=== PATIENT | male | born 1965 | race Caucasian/White ===

== ENCOUNTER 2017-03-07 15:57 | Inpatient (IN) | payer OTHER ==
[~2017-03-07] VITALS: Ht 170.2 cm; Wt 90.8 kg
[2017-03-07] MEDS ORDERED: predniSONE 20 MG TAB PO STA (16:11)
[2017-03-07] MEDS ORDERED: IPRATROPIUM (NEB) 0.5 MG/2.5 ML AMP NEB STA (16:11)
[2017-03-07] MEDS ORDERED: ALBUTEROL 0.083% (NEB) 2.5 MG/3 ML AMP NEB STA (16:11)
[2017-03-07] MEDS ORDERED: AZITHROMYCIN 250 MG TAB PO ONE (16:30)
--- NOTE | 2017-03-07 17:40 | RADRPT ---
PROCEDURE: XR Chest. CLINICAL INDICATION: Cough. Asthma exacerbation. TECHNIQUE: Single frontal chest x-ray. COMPARISON: None available. FINDINGS: The cardiomediastinal silhouette is unremarkable. Mild bibasilar atelectasis is noted. No pneumothorax, pleural effusion or consolidation is seen. No acute osseous abnormality is noted. IMPRESSION: 1. Mild bibasilar atelectasis. 2. Otherwise no acute cardiopulmonary abnormality. RPTAT: HFN .Fiorella Gilliland MD, Date Time Electronically viewed and signed by .Fiorella Gilliland MD, on 03/07/2017 17:40 .N/
[2017-03-07] MEDS ORDERED: ALBUTEROL 0.083% (NEB) 2.5 MG/3 ML AMP HHN STA (18:21)
[2017-03-07] MEDS ORDERED: ALBU18HF INHALATION (18:21)
[2017-03-07] MEDS ORDERED: PRED20TA PO (18:21)
[2017-03-07] MEDS ORDERED: AZIT250T94 PO (18:21)
[2017-03-07 18:51] LABS: ADD SCAN DIFF NO
[2017-03-07 18:54] LABS: BASOPHIL # 0.1 10^3/ul (0.0-0.1); BASOPHILS % 0.5 % (0.0-2.0); EOSINOPHILS # 0.8 10^3/ul (0.0-0.5); EOSINOPHILS % 6.8 % (0.0-7.0); HEMATOCRIT 59.4 % (42.0-52.0); HEMOGLOBIN 19.4 g/dl (14.0-18.0); LYMPHOCYTES # 1.6 10^3/ul (0.8-2.9); LYMPHOCYTES % 13.2 % (15.0-51.0); MEAN CORPUSCULAR HEMOGLOBIN 30.4 pg (29.0-33.0); MEAN CORPUSCULAR HGB CONC 32.7 g/dl (32.0-37.0); MEAN CORPUSCULAR VOLUME 93.1 fl (82.0-101.0); MEAN PLATELET VOLUME 8.8 fl (7.4-10.4); MONOCYTE # 0.4 10^3/ul (0.3-0.9); MONOCYTES % 3.7 % (0.0-11.0); NEUTROPHIL # 9.1 10^3/ul (1.6-7.5); NEUTROPHILS % 75.4 % (39.0-77.0); PLATELET COUNT 254 10^3/UL (140-415); RED BLOOD COUNT 6.38 10^6/ul (4.70-6.10)
[2017-03-07 19:06] LABS: CREATININE 0.95 mg/dl (0.61-1.24)
[2017-03-07 19:07] LABS: CALCIUM 9.2 mg/dl (8.4-10.2)
[2017-03-07] MEDS ORDERED: HTN PO (19:10)
[2017-03-07] MEDS ORDERED: DIABETES PO (19:12)
[2017-03-07] MEDS ORDERED: ONDANSETRON 4 MG INJ IV PRN (19:30)
[2017-03-07] MEDS ORDERED: ACETAMINOPHEN 325 MG TAB PO PRN (19:30)
--- NOTE | 2017-03-07 19:31 | ERA ---
ER Documentation Chief Complaint Date/Time DATE: 03/07/17 TIME: 19:27 Chief Complaint COUGH,SOB,WHEEZING X 2 DAYS HPI Patient is a 52-year-old male with bronchitis, diabetes, and hypertension he says "I cannot breathe". He said this started 2 days ago but has gotten worse. He has a cough but no fever. He has had no treatment as of yet. Upon review of old medical records this the patient's first visit to the emerge department. He says that he has a primary doctor but does not know the doctor's name. ROS All systems reviewed and are negative except as per history of present illness. Medications Home Meds Active Scripts Azithromycin* (Zithromax*) 250 Mg Tablet, 250 MG PO DAILY for 4 Days, TAB Prov:JOSE SANCHEZ MD 03/07/17 Prednisone* (Prednisone*) 20 Mg Tab, 60 MG PO DAILY for 4 Days, TAB Prov:JOSE SANCHEZ MD 03/07/17 Albuterol Sulfate* (Ventolin HFA*) 18 Gm Hfa.aer.ad, 2 PUFF INHALATION Q4H, #1 INHALER Prov:JOSE SANCHEZ MD 03/07/17 Reported Medications [Diabetes] No Conflict Check, PO DAILY 03/07/17 [Htn] No Conflict Check, PO DAILY 03/07/17 Allergies Allergies: Coded Allergies: No Known Drug Allergy (Verified Allergy, Unknown, 03/07/17) PMhx/Soc Hx Respiratory Disorders: Yes (asthma) Hx Miscellaneous Medical Probl: Yes (HTN, DM) Hx Alcohol Use: Yes Hx Substance Use: No Hx Tobacco Use: Yes (1 ppd) Smoking Status: Current every day smoker FmHx Family History: diabetes Physical Exam Vitals Vital Signs Date Time Temp Pulse Resp B/P Pulse Ox O2 Delivery O2 Flow Rate FiO2 03/07/17 19:24 77 89 03/07/17 19:23 Nasal Cannula 2 03/07/17 19:20 97.7 95 20 142/98 98 Nasal Cannula 2.0 03/07/17 19:20 Nasal Cannula 2.0 03/07/17 19:20 Nasal Cannula 2 03/07/17 19:10 2.0 03/07/17 19:09 88 22 98 Nasal Cannula 2.0 03/07/17 16:36 83 20 96 21 03/07/17 15:59 97.5 91 22 162/97 95 Physical Exam Const: Moderate distress secondary to shortness of breath Head: Atraumatic Eyes: Normal Conjunctiva ENT: Normal External Ears, Nose and Mouth. Neck: Full range of motion..~ No meningismus. Resp: Rhonchorous breath sounds bilaterally Cardio: Regular rate and rhythm, no murmurs Abd: Soft, non tender, non distended. Normal bowel sounds Skin: No petechiae or rashes Back: No midline or flank tenderness Ext: No cyanosis, or edema Neur: Awake and alert Psych: Normal Mood and Affect Result Diagram: 03/07/170 03/07/171839 Results 24 hrs Laboratory Tests Test 03/07/17 18:40 White Blood Count 12.010^3/ul Red Blood Count 6.3810^6/ul Hemoglobin 19.4g/dl Hematocrit 59.4% Mean Corpuscular Volume 93.1fl Mean Corpuscular Hemoglobin 30.4pg Mean Corpuscular Hemoglobin Concent 32.7g/dl Red Cell Distribution Width 14.0% Platelet Count 13249^3/UL Mean Platelet Volume 8.8fl Neutrophils % 75.4% Lymphocytes % 13.2% Monocytes % 3.7% Eosinophils % 6.8% Basophils % 0.5% Nucleated Red Blood Cells % 0.0/100WBC Neutrophils # 9.110^3/ul Lymphocytes # 1.610^3/ul Monocytes # 0.410^3/ul Eosinophils # 0.810^3/ul Basophils # 0.110^3/ul Nucleated Red Blood Cells # 0.010^3/ul Sodium Level 137mmol/L Potassium Level 4.0mmol/L Chloride Level 101mmol/L Carbon Dioxide Level 24mmol/L Anion Gap 16 Blood Urea Nitrogen 11mg/dl Creatinine 0.95mg/dl Glucose Level 141mg/dl Calcium Level 9.2mg/dl Current Medications Medications (Trade) Dose Ordered Sig/Hector Route PRN Reason Start Time Stop Time Status Last Admin Dose Admin Albuterol (Proventil 0.083% (Neb)) 5 mg ONCE STAT NEB 03/07/17 16:11 03/07/17 16:13 DC 03/07/17 16:35 Ipratropium Trent (Atrovent 0.02% (Neb)) 0.5 mg ONCE STAT NEB 03/07/17 16:11 03/07/17 16:13 DC 03/07/17 16:34 Prednisone (Prednisone) 60 mg ONCE STAT PO 03/07/17 16:11 03/07/17 16:13 DC 03/07/17 16:17 Azithromycin (Zithromax) 500 mg ONCE ONCE PO 03/07/17 16:30 03/07/17 16:31 DC 03/07/17 16:17 Albuterol (Proventil 0.083% (Neb)) 5 mg ONCE STAT HHN 03/07/17 18:21 03/07/17 18:23 DC 03/07/17 19:09 Ondansetron HCl (Zofran Inj) 4 mg BRIDGE ORDER PRN IV NAUSEA AND/OR VOMITING 03/07/17 19:30 03/08/17 19:29 Acetaminophen (Tylenol Tab) 650 mg ER BRIDGE PRN PO MILD PAIN/FEVER 03/07/17 19:30 03/08/17 19:29 Procedures/MDM Chest x-ray shows no pneumonia per radiology. Flu swab is negative. Patient is a 52-year-old male who presents with what appears to be acute COPD exacerbation. The patient was given albuterol, Atrovent, prednisone, and Zithromax but after breathing treatment was still hypoxic in the 80s. Therefore I felt that admission was appropriate. He does feel better from a respiratory standpoint. I spoke with Dr. Jiang for the palate team for admission. The patient will be admitted to a medical surgical bed. The patient will likely continue breathing treatments and steroids. I doubt pneumonia, pneumothorax, or pulmonary embolism. Departure Diagnosis: Primary Impression: Bronchitis Additional Impression: Shortness of breath Condition: Fair Patient Instructions: Bronchitis, Antiobiotic Treatment (Adult) Referrals: Your doctor Additional Instructions: Call your primary care doctor TOMORROW for an appointment during the next 1-2 days.See the doctor sooner or return here if your condition worsens before your appointment time. JOSE SANCHEZ MD Mar 07, 2017 19:31
[2017-03-08] VITALS (8 sets, daily range): BP systolic 132–142; BP diastolic 80–89; PULSE 98–109; RESP 18–19; TEMP 98.1; Ht 170.2 cm; Wt 90.8 kg
[2017-03-08] MEDS ORDERED: IPRATROPIUM (NEB) 0.5 MG/2.5 ML AMP NEB STA (01:53)
[2017-03-08] MEDS ORDERED: ALBUTEROL 0.083% (NEB) 2.5 MG/3 ML AMP NEB STA (01:53)
[2017-03-08] MEDS ORDERED: IPRATROPIUM (NEB) 0.5 MG/2.5 ML AMP INH STA (03:29)
[2017-03-08] MEDS ORDERED: ALBUTEROL 0.5% (NEB) 2.5 MG/0.5 ML AMP INH STA (03:29)
[2017-03-08] MEDS ORDERED: ONDANSETRON 4 MG INJ IV PRN (05:30)
[2017-03-08] MEDS ORDERED: LORAZEPAM 2 MG INJ IV PRN (05:30)
[2017-03-08] MEDS ORDERED: ACETAMINOPHEN 325 MG TAB PO PRN (05:30)
[2017-03-08] MEDS: LEVOFLOXACIN 500MG/D5W (PMX) 100 ML IVPB SCH (06:59)
--- NOTE | 2017-03-08 07:18 | HP ---
DATE OF ADMISSION: 03/07/2017 TIME SEEN: 2300. CHIEF COMPLAINT: Shortness of breath and cough. HISTORY OF PRESENT ILLNESS: The patient is a 52-year-old male with a history of diabetes, hypertens ion, COPD, depression, alcohol abuse, marijuana and crystal meth use, who presented to the emergency department complaining of shortness of breath and cough. The symptoms have been going on for about 3 days. His cough is productive of brownish sputum. He denied any fever, chills, nausea or vomi ting, chest pain, abdominal pain or urinary symptoms. He did admit to drinking alcohol on a daily b asis and his last drink was yesterday, about 5 beers. He also smokes marijuana and crystal meth, an d I believe he last used crystal meth yesterday as well. When he presented to the ER his blood pressure was 167/97, heart rate 91, respiratory rate 20, tempe rature 97.5, oxygen saturation 95% on room air. Laboratory values show a WBC of 12, with a hemoglob in of 19 and a hematocrit of 59. Otherwise, the rest of CBC and BMP are within normal limits. Ches t x-ray shows mild bibasilar atelectasis, otherwise no acute cardiopulmonary abnormality. He receiv ed breathing treatments with albuterol and Atrovent and was given 60 mg of prednisone. REVIEW OF SYSTEMS: A 12-point review was performed and negative except as mentioned in the HPI. PAST MEDICAL HISTORY: As per HPI. PAST SURGICAL HISTORY: Denies. SOCIAL HISTORY: He smokes a pack a day. He drinks alcohol daily, choice of drink being beer. Also a history of marijuana and crystal meth. PHYSICAL EXAMINATION: VITAL SIGNS: Blood pressure 148/88, heart rate 92, respiratory rate 18, temperature 98, oxygen satu ration 98% on 2 liters. GENERAL: In no acute distress, answering questions appropriately. He is alert and oriented. HEENT: No obvious head deformity. Pupils react to light. Extraocular muscles are intact. CARDIOVASCULAR: Regular rate and rhythm. No extra sounds. LUNGS: He has minimal scattered wheezing. ABDOMEN: Soft, nontender, nondistended. Positive bowel sounds. EXTREMITIES: No edema. NEUROLOGIC: No focal deficits. LABORATORY: WBC 12, hemoglobin 19, hematocrit 59. Otherwise CBC and BMP are within normal limits. IMAGING: Chest x-ray shows mild right basilar atelectasis, otherwise no active cardiopulmonary abno rmality. IMPRESSION: 1. Chronic obstructive pulmonary disease exacerbation. 2. Acute bronchitis. 3. SIRS, as evidenced by leukocytosis and tachycardia, likely secondary to #2. 4. Polysubstance abuse, including alcohol, marijuana and crystal meth. 5. Erythrocytosis, most likely hemoconcentration secondary to dehydration. PLAN: He will receive breathing treatments, as well as Solu-Medrol. He will be placed on oxygen. He will also be placed on antibiotics. Will attempt to send his sputum for Gram stain and culture. The patient's last drink was yesterday and he has been drinking on a daily basis, and as such, he w ill be placed on a banana bag and Librium, with as-needed Ativan for prevention of withdrawal. I wi ll place him on IV fluid to help with his erythrocytosis, which I think is secondary to hemoconcentr ation. If no improvement, then a hematology consult will be placed. Given the risk of thrombosis, he will be placed on a small dose of aspirin for now. Further workup and management per clinical course. Dictated By: AYDE MEADE/JASPREET Conf#: [id number] DID#: [id number]
[2017-03-08] MEDS ORDERED: METHYLPREDNISOLONE 125 MG INJ IV SCH (09:00)
[2017-03-08] MEDS: LEVALBUTEROL (NEB) 0.31 MG/3 ML AMP HHN SCH ×3 (09:00→16:11)
[2017-03-08] MEDS: IPRATROPIUM (NEB) 0.5 MG/2.5 ML AMP HHN SCH ×3 (09:00→16:11)
[2017-03-08] MEDS: CHLORDIAZEPOXIDE 25 MG CAP PO SCH ×3 (09:54→21:27)
[2017-03-08] MEDS: NICOTINE (21 MG/24 HR) PATCH TRANSDERM SCH (09:54)
[2017-03-08] MEDS: MULTIVITAMINS 10 ML, THIAMINE 100 MG, FOLIC ACID 1 MG in SOD CHLORIDE 0.9% 1,000 ML IVPB SCH (09:54)
[2017-03-08] MEDS: ASPIRIN (EC) 81 MG TAB PO SCH (09:54)
[2017-03-08 12:23] LABS: ADD SCAN DIFF NO
[2017-03-08 12:28] LABS: BASOPHILS % 0.3 % (0.0-2.0); EOSINOPHILS # 0.2 10^3/ul (0.0-0.5); EOSINOPHILS % 1.5 % (0.0-7.0); HEMATOCRIT 56.3 % (42.0-52.0); HEMOGLOBIN 18.7 g/dl (14.0-18.0); LYMPHOCYTES # 1.5 10^3/ul (0.8-2.9); LYMPHOCYTES % 11.3 % (15.0-51.0); MEAN CORPUSCULAR HEMOGLOBIN 31.3 pg (29.0-33.0); MEAN CORPUSCULAR HGB CONC 33.2 g/dl (32.0-37.0); MEAN CORPUSCULAR VOLUME 94.3 fl (82.0-101.0); MEAN PLATELET VOLUME 8.9 fl (7.4-10.4); MONOCYTE # 0.7 10^3/ul (0.3-0.9); MONOCYTES % 5.5 % (0.0-11.0); NEUTROPHIL # 10.7 10^3/ul (1.6-7.5); NEUTROPHILS % 80.7 % (39.0-77.0); PLATELET COUNT 270 10^3/UL (140-415); RED BLOOD COUNT 5.97 10^6/ul (4.70-6.10); RED CELL DISTRIBUTION WIDTH 13.6 % (11.5-14.5); WHITE BLOOD COUNT 13.3 10^3/ul (4.8-10.8)
[2017-03-08 12:39] LABS: ALBUMIN 4.2 g/dl (3.3-4.9)
[2017-03-08 12:40] LABS: POTASSIUM 3.5 mmol/L (3.5-5.1)
[2017-03-08 12:42] LABS: ALBUMIN/GLOBULIN RATIO 1.31; BILIRUBIN,INDIRECT 0.4 mg/dl (0-1.1); BILIRUBIN,TOTAL 0.4 mg/dl (0.2-1.3); CREATININE 1.11 mg/dl (0.61-1.24); TOTAL PROTEIN 7.4 g/dl (6.1-8.1)
[2017-03-08 12:43] LABS: CALCIUM 9.2 mg/dl (8.4-10.2); MAGNESIUM 2.3 mg/dl (1.7-2.5); PHOSPHORUS 2.6 mg/dl (2.5-4.9)
[2017-03-08] MEDS: LEVALBUTEROL (NEB) 0.31 MG/3 ML AMP HHN PRN ×2 (13:27→20:49)
[2017-03-08] MEDS: IPRATROPIUM (NEB) 0.5 MG/2.5 ML AMP HHN PRN ×2 (13:27→20:49)
--- NOTE | 2017-03-08 14:02 | PN ---
Date/Time of Note Date/Time of Note DATE: 03/08/17 TIME: 13:56 Assessment/Plan VTE Prophylaxis VTE Prophylaxis Intervention: SCD's Lines/Catheters IV Catheter Type (from Rust): Saline Lock Assessment/Plan Chief Complaint/Hosp Course 1. Chronic obstructive pulmonary disease exacerbation -Pulm consult -cont Steroids and Abx 2. Sepsis as evidenced by leukocytosis and tachycardia 2/2 Bronchitis -cont Abx 3. Polysubstance abuse, including alcohol, marijuana and crystal meth. 4. Tobacco abuse -advised to stop using 5. Erythrocytosis, most likely hemoconcentration secondary to dehydration PPx- SCD's Problems: Subjective 24 Hr Interval Summary Respiratory: shortness of breath Exam/Review of Systems Vital Signs Vitals Vital Signs Date Time Temp Pulse Resp B/P Pulse Ox O2 Delivery O2 Flow Rate FiO2 03/08/17 13:28 96 26 95 Nasal Cannula 2.0 03/08/17 11:21 97.1 140/86 03/08/17 03:31 28 Exam Constitutional: alert, oriented Respiratory: clear to auscultation Cardiovascular: regular rate and rhythm Gastrointestinal: soft, No distended Musculoskeletal: nl extremities to inspection Results Result Diagram: 03/08/17 1210 03/08/17 1210 Results 24 hrs Laboratory Tests Test 03/07/17 18:40 03/08/17 11:17 03/08/17 12:10 White Blood Count 12.0 H 13.3 H Red Blood Count 6.38 H 5.97 Hemoglobin 19.4 H 18.7 H Hematocrit 59.4 H 56.3 H Mean Corpuscular Volume 93.1 94.3 Mean Corpuscular Hemoglobin 30.4 31.3 Mean Corpuscular Hemoglobin Concent 32.7 33.2 Red Cell Distribution Width 14.0 13.6 Platelet Count 254 270 Mean Platelet Volume 8.8 8.9 Neutrophils % 75.4 80.7 H Lymphocytes % 13.2 L 11.3 L Monocytes % 3.7 5.5 Eosinophils % 6.8 1.5 Basophils % 0.5 0.3 Nucleated Red Blood Cells % 0.0 0.0 Neutrophils # 9.1 H 10.7 H Lymphocytes # 1.6 1.5 Monocytes # 0.4 0.7 Eosinophils # 0.8 H 0.2 Basophils # 0.1 0.0 Nucleated Red Blood Cells # 0.0 0.0 Sodium Level 137 137 Potassium Level 4.0 3.5 Chloride Level 101 99 Carbon Dioxide Level 24 26 Anion Gap 16 16 Blood Urea Nitrogen 11 16 Creatinine 0.95 1.11 Glucose Level 141 164 Calcium Level 9.2 9.2 Bedside Glucose 184 Phosphorus Level 2.6 Magnesium Level 2.3 Total Bilirubin 0.4 Direct Bilirubin 0.00 Indirect Bilirubin 0.4 Aspartate Amino Transf (AST/SGOT) 23 Alanine Aminotransferase (ALT/SGPT) 34 Alkaline Phosphatase 80 Total Protein 7.4 Albumin 4.2 Globulin 3.20 Albumin/Globulin Ratio 1.31 Medications Medications Current Medications Lorazepam (Ativan) 2 mg Q1H PRN IV Withdrawal; Start 03/08/17 at 05:30 Chlordiazepoxide (Librium) 50 mg TID PO Last administered on 03/08/17 12:30; Admin Dose 50 MG; Start 03/08/17 at 09:00; Stop 03/11/17 at 00:00 Methylprednisolone Sodium Succinate (Solu-Medrol) 80 mg DAILY IV Last administered on 03/08/17 09:53; Admin Dose 80 MG; Start 03/08/17 at 09:00 Acetaminophen (Tylenol Tab) 650 mg Q6H PRN PO PAIN AND OR ELEVATED TEMP; Start 03/08/17 at 05:30 Ondansetron HCl (Zofran Inj) 4 mg Q6H PRN IV NAUSEA AND/OR VOMITING; Start at 05:30 Nicotine 1 patch 1 patch DAILY TRANSDERM Last administered on 03/08/17 09:54; Admin Dose 1 PATCH; Start 03/08/17 at 09:00 Multivitamins/ Thiamine HCl/ Folic Acid/Sodium Chloride (Mvi Adult/ Vitamin B1/ Folic Acid/NS) 1,011.2 ml @ 125 mls/ hr DAILY@09 IVPB Last administered on 09:54; Admin Dose 125 MLS/HR; Start 03/08/17 at 09:00; Stop 03/11/17 at 08:00 Aspirin 81 mg 81 mg DAILY PO Last administered on 03/08/17 09:54; Admin Dose 81 MG; Start 03/08/17 at 09:00 Levofloxacin/ Dextrose (Levaquin 500mg/ D5W 100 ml (Pmx)) 100 ml @ 100 mls/hr Q24H IVPB Last administered on 03/08/17t 06:59; Admin Dose 100 MLS/HR; Start at 06:30 JOHN SANCHEZ Mar 08, 2017 14:02
--- NOTE | 2017-03-08 14:53 | CONS ---
Date/Time of Note Date/Time of Note DATE: 03/08/17 TIME: 14:49 Assessment/Plan Assessment/Plan Additional Assessment/Plan HEENT examination; supple neck, no JVD. No lymphadenopathy. Midline trachea. No thyromegaly. Pharynx is clear. Patient is edentulous. Pupils are midsize and reactive to light. Chest examination; diminished air entry bilaterally with bilateral expiratory wheezing. S1-S2 audible, no murmurs. Regular rhythm. Abdomen examination; soft, protuberant. No organomegaly. Bowel sounds audible. Extremity exam; no peripheral edema. No clubbing. Pulses 2+. 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 Assessment and recommendations; 1. Patient admitted for COPD exacerbation and acute bronchitis. 2. History of hypertension or diabetes. 3. History of drug use. Continue current treatment. Increase Solu-Medrol 80 mg every 6 hours. ABG has been done once the results are obtained I will review it and make further recommendations. The patient may benefit from BiPAP. Consultation Date/Type/Reason Admit Date/Time Mar 07, 2017 at 19:10 Date of Consultation: Mar 08, 2017 Type of Consultation: Pulmonary Reason for Consultation Pulmonary consultations obtained for evaluation of COPD exacerbation. History presenting any; patient is a 52-year-old F [place] male who came into the emergency room yesterday with a few days history of increasing shortness of breath cough and wheezing. According to him he was doing fine until the symptoms started. Patient denies any fever or chest pain any body aches, myalgias or arthralgia. Denies any sore throat. According to him he is just fatigued and tired. Past medical history; 1. History of COPD. 2. History of drug abuse. 3. Hypertension. 4. Diabetes. Allergies; are none. Social history; patient smokes about pack and a half a day and also uses crystal meth and drinks alcohol, patient's last drink was several days ago. Family history; patient is single he does not have any children. Occupational history; patient is on disability. Review of systems; denies any headache, seizures, visual changes. Any sinus symptoms. Any chest pain or angina. Complains of scant cough without any sputum production. Denies any hemoptysis. Complains of wheezing and shortness of breath. Complains of dyspnea on exertion. Denies abdominal pain, nausea vomiting. Any melena, hematochezia. Denies any edema. Complains of mild orthopnea. Denies any weight change. General exam; middle-aged male, appears overweight currently in no distress awake. Respiratory: shortness of breath Social History Smoking Status: Current every day smoker Exam/Review of Systems Vital Signs Vitals Vital Signs Date Time Temp Pulse Resp B/P Pulse Ox O2 Delivery O2 Flow Rate FiO2 03/08/17 13:28 96 26 95 Nasal Cannula 2.0 03/08/17 11:21 97.1 140/86 03/08/17 03:31 28 Results Result Diagram: 03/08/17 1210 03/08/17 1210 Results 24 hrs Laboratory Tests Test 03/07/17 18:40 03/08/17 11:17 03/08/17 12:10 White Blood Count 12.0 H 13.3 H Red Blood Count 6.38 H 5.97 Hemoglobin 19.4 H 18.7 H Hematocrit 59.4 H 56.3 H Mean Corpuscular Volume 93.1 94.3 Mean Corpuscular Hemoglobin 30.4 31.3 Mean Corpuscular Hemoglobin Concent 32.7 33.2 Red Cell Distribution Width 14.0 13.6 Platelet Count 254 270 Mean Platelet Volume 8.8 8.9 Neutrophils % 75.4 80.7 H Lymphocytes % 13.2 L 11.3 L Monocytes % 3.7 5.5 Eosinophils % 6.8 1.5 Basophils % 0.5 0.3 Nucleated Red Blood Cells % 0.0 0.0 Neutrophils # 9.1 H 10.7 H Lymphocytes # 1.6 1.5 Monocytes # 0.4 0.7 Eosinophils # 0.8 H 0.2 Basophils # 0.1 0.0 Nucleated Red Blood Cells # 0.0 0.0 Sodium Level 137 137 Potassium Level 4.0 3.5 Chloride Level 101 99 Carbon Dioxide Level 24 26 Anion Gap 16 16 Blood Urea Nitrogen 11 16 Creatinine 0.95 1.11 Glucose Level 141 164 Calcium Level 9.2 9.2 Bedside Glucose 184 Phosphorus Level 2.6 Magnesium Level 2.3 Total Bilirubin 0.4 Direct Bilirubin 0.00 Indirect Bilirubin 0.4 Aspartate Amino Transf (AST/SGOT) 23 Alanine Aminotransferase (ALT/SGPT) 34 Alkaline Phosphatase 80 Total Protein 7.4 Albumin 4.2 Globulin 3.20 Albumin/Globulin Ratio 1.31 Medications Medications Current Medications Lorazepam (Ativan) 2 mg Q1H PRN IV Withdrawal; Start 03/08/17 at 05:30 Chlordiazepoxide (Librium) 50 mg TID PO Last administered on 03/08/17 12:30; Admin Dose 50 MG; Start 03/08/17 at 09:00; Stop 03/11/17 at 00:00 Methylprednisolone Sodium Succinate (Solu-Medrol) 80 mg DAILY IV Last administered on 03/08/17 09:53; Admin Dose 80 MG; Start 03/08/17 at 09:00 Acetaminophen (Tylenol Tab) 650 mg Q6H PRN PO PAIN AND OR ELEVATED TEMP; Start 03/08/17 at 05:30 Ondansetron HCl (Zofran Inj) 4 mg Q6H PRN IV NAUSEA AND/OR VOMITING; Start at 05:30 Nicotine 1 patch 1 patch DAILY TRANSDERM Last administered on 03/08/17 09:54; Admin Dose 1 PATCH; Start 03/08/17 at 09:00 Multivitamins/ Thiamine HCl/ Folic Acid/Sodium Chloride (Mvi Adult/ Vitamin B1/ Folic Acid/NS) 1,011.2 ml @ 125 mls/ hr DAILY@09 IVPB Last administered on 09:54; Admin Dose 125 MLS/HR; Start 03/08/17 at 09:00; Stop 03/11/17 at 08:00 Aspirin 81 mg 81 mg DAILY PO Last administered on 03/08/17 09:54; Admin Dose 81 MG; Start 03/08/17 at 09:00 Levofloxacin/ Dextrose (Levaquin 500mg/ D5W 100 ml (Pmx)) 100 ml @ 100 mls/hr Q24H IVPB Last administered on 03/08/17 06:59; Admin Dose 100 MLS/HR; Start at 06:30 LINDA VIZCARRA Mar 08, 2017 14:53
[2017-03-08 15:13] LABS: AADO2 Arterial 80.2 mmHg (7.0-24.0); Allen Test ACCEPTAB; Arterial Base Excess -3.5 mmol/L (-3.0-3); Arterial COHb 0.3 % (0.0-3.0); Arterial Fraction of Oxyhgb 94.8 % (93.0-99.0); Arterial HCO3 19.8 mmol/L (22.0-26.0); Arterial MetHb 0.4 % (0.0-1.5); MODE NASAL CANNULA
[2017-03-08] MEDS: METHYLPREDNISOLONE 125 MG INJ IV SCH (17:25)
[2017-03-09] VITALS (12 sets, daily range): BP systolic 125–137; BP diastolic 75–94; PULSE 40–110; RESP 19–22
[2017-03-09] MEDS: METHYLPREDNISOLONE 125 MG INJ IV SCH ×3 (00:08→12:02)
[2017-03-09] MEDS: IPRATROPIUM (NEB) 0.5 MG/2.5 ML AMP HHN PRN ×3 (01:28→14:35)
[2017-03-09] MEDS ORDERED: LORAZEPAM 2 MG INJ IV ONE (01:30)
[2017-03-09] MEDS ORDERED: LEVALBUTEROL (NEB) 0.31 MG/3 ML AMP HHN ONE (02:03)
[2017-03-09] MEDS ORDERED: METHYLPREDNISOLONE 125 MG INJ IV ONE (02:03)
[2017-03-09] MEDS ORDERED: IPRATROPIUM (NEB) 0.5 MG/2.5 ML AMP HHN ONE (02:03)
[2017-03-09] MEDS: LEVALBUTEROL (NEB) 0.31 MG/3 ML AMP HHN PRN ×2 (05:23→14:45)
[2017-03-09] MEDS: LEVOFLOXACIN 500MG/D5W (PMX) 100 ML IVPB SCH (06:27)
[2017-03-09 08:30] LABS: ADD SCAN DIFF NO
[2017-03-09 08:42] LABS: BASOPHILS % 0.1 % (0.0-2.0); EOSINOPHILS % 0.1 % (0.0-7.0); HEMOGLOBIN 18.2 g/dl (14.0-18.0); LYMPHOCYTES # 1.4 10^3/ul (0.8-2.9); MEAN CORPUSCULAR HEMOGLOBIN 31.4 pg (29.0-33.0); MEAN CORPUSCULAR HGB CONC 33.1 g/dl (32.0-37.0); MEAN CORPUSCULAR VOLUME 94.8 fl (82.0-101.0); MONOCYTE # 0.4 10^3/ul (0.3-0.9); MONOCYTES % 2.5 % (0.0-11.0); NEUTROPHIL # 13.2 10^3/ul (1.6-7.5); NEUTROPHILS % 87.4 % (39.0-77.0); PLATELET COUNT 287 10^3/UL (140-415); RED CELL DISTRIBUTION WIDTH 14.1 % (11.5-14.5); WHITE BLOOD COUNT 15.2 10^3/ul (4.8-10.8)
[2017-03-09 09:01] LABS: POTASSIUM 4.4 mmol/L (3.5-5.1)
[2017-03-09 09:03] LABS: CREATININE 1.24 mg/dl (0.61-1.24)
[2017-03-09 09:04] LABS: CALCIUM 9.5 mg/dl (8.4-10.2)
[2017-03-09] MEDS: CHLORDIAZEPOXIDE 25 MG CAP PO SCH ×2 (09:09→12:44)
[2017-03-09] MEDS: ASPIRIN (EC) 81 MG TAB PO SCH (09:09)
[2017-03-09] MEDS: MULTIVITAMINS 10 ML, THIAMINE 100 MG, FOLIC ACID 1 MG in SOD CHLORIDE 0.9% 1,000 ML IVPB SCH (10:13)
[2017-03-09] MEDS: NICOTINE (21 MG/24 HR) PATCH TRANSDERM SCH (12:02)
--- NOTE | 2017-03-09 14:54 | CONS ---
Date/Time of Note Date/Time of Note DATE: 03/09/17 TIME: 14:53 Consult Date/Type/Reason Admit Date/Time Mar 07, 2017 at 19:10 Initial Consult Date 03/08/17 Type of Consultation: Pulmonary Subjective Breathing a little better today less shortness of breath Objective Vital Signs Date Time Temp Pulse Resp B/P Pulse Ox O2 Delivery O2 Flow Rate FiO2 03/09/17 14:36 102 22 93 Nasal Cannula 2.0 03/09/17 12:06 98.0 125/75 03/09/17 09:50 30 Intake and Output 03/08/17 03/08/17 03/09/17 15:00 23:00 07:00 Intake Total 100 ml 2191 ml Output Total 1250 ml Balance 100 ml 941 ml Exam GENERAL: Well-nourished well-developed gentleman comfortable at rest VITAL SIGNS: per chart NECK: Supple. No JVD or lymphadenopathy. CARDIAC EXAM: S1, S2. No added sounds or murmurs. CHEST: Diminished air entry bilaterally with mild expiratory wheezing ABDOMEN: Soft, nontender. No guarding or rebound. EXTREMITIES: No cyanosis, clubbing or edema. NEUROLOGIC: Generalized weakness. No focal deficits. Results/Medications Result Diagram: 03/09/17 0746 03/09/17 0746 Results 24 hrs Laboratory Tests Test 03/09/17 07:46 White Blood Count 15.2 H Red Blood Count 5.80 Hemoglobin 18.2 H Hematocrit 55.0 H Mean Corpuscular Volume 94.8 Mean Corpuscular Hemoglobin 31.4 Mean Corpuscular Hemoglobin Concent 33.1 Red Cell Distribution Width 14.1 Platelet Count 287 Mean Platelet Volume 9.0 Neutrophils % 87.4 H Lymphocytes % 9.0 L Monocytes % 2.5 Eosinophils % 0.1 Basophils % 0.1 Nucleated Red Blood Cells % 0.0 Neutrophils # 13.2 H Lymphocytes # 1.4 Monocytes # 0.4 Eosinophils # 0.0 Basophils # 0.0 Nucleated Red Blood Cells # 0.0 Sodium Level 139 Potassium Level 4.4 Chloride Level 100 Carbon Dioxide Level 25 Anion Gap 18 H Blood Urea Nitrogen 19 Creatinine 1.24 Glucose Level 212 Hemoglobin A1c 6.4 H Calcium Level 9.5 Medications Current Medications Lorazepam (Ativan) 2 mg Q1H PRN IV Withdrawal; Start 03/08/17 at 05:30 Chlordiazepoxide (Librium) 50 mg TID PO Last administered on 03/09/17 12:44; Admin Dose 50 MG; Start 03/08/17 at 09:00; Stop 03/11/17 at 00:00 Acetaminophen (Tylenol Tab) 650 mg Q6H PRN PO PAIN AND OR ELEVATED TEMP; Start 03/08/17 at 05:30 Ondansetron HCl (Zofran Inj) 4 mg Q6H PRN IV NAUSEA AND/OR VOMITING; Start at 05:30 Nicotine 1 patch 1 patch DAILY TRANSDERM Last administered on 03/09/17 12:02; Admin Dose 1 PATCH; Start 03/08/17 at 09:00 Multivitamins/ Thiamine HCl/ Folic Acid/Sodium Chloride (Mvi Adult/ Vitamin B1/ Folic Acid/NS) 1,011.2 ml @ 125 mls/ hr DAILY@09 IVPB Last administered on 10:13; Admin Dose 125 MLS/HR; Start 03/08/17 at 09:00; Stop 03/11/17 at 08:00 Aspirin 81 mg 81 mg DAILY PO Last administered on 03/09/17 09:09; Admin Dose 81 MG; Start 03/08/17 at 09:00 Levofloxacin/ Dextrose (Levaquin 500mg/ D5W 100 ml (Pmx)) 100 ml @ 100 mls/hr Q24H IVPB Last administered on 03/09/17 06:27; Admin Dose 100 MLS/HR; Start at 06:30 Methylprednisolone Sodium Succinate (Solu-Medrol) 80 mg Q6 IV Last administered on 03/09/17 12:02; Admin Dose 80 MG; Start 03/08/17 at 18:00 Assessment/Plan Chief Complaint/Hosp Course Assessment 1. COPD exacerbation with possible component of community-acquired pneumonia 2. History of polysubstance abuse 3. Polycythemia Plan 1. Continue antibiotics 2. Continue steroids 3. Continue bronchodilators 4. Social work evaluation regarding substance abuse Anticipate discharge soon. Problems: DAVE CYR MD, [facility] Mar 09, 2017 14:54
--- NOTE | 2017-03-09 14:58 | PDOCDIS ---
Discharge Instructions CONDITION Patient Condition: Stable HOME CARE INSTRUCTIONS: Diet Instructions: Low Fat /Cholesterol ACTIVITY: Activity Restrictions: Slowly Increase Activity Rest between Activity Avoid heavy lifting FOLLOW UP/APPOINTMENTS Appointments Follow-up with primary care physician as outpatient Follow up with pumper gauger as outpatient OTHER ORDERS: Other Orders: Smoking cessation CARLITOS GALVIN MD Mar 09, 2017 14:58
[2017-03-09] MEDS ORDERED: LEVO500T72 PO (15:04)
[2017-03-09] MEDS ORDERED: IPRA4AER INHALATION (15:04)
[2017-03-09] MEDS ORDERED: CHLO25CA9 PO (15:04)
[2017-03-09] MEDS ORDERED: NICO1PAT6 TRANSDERM (15:04)
[2017-03-09] MEDS ORDERED: PRED20TA PO (15:04)
[2017-03-09] MEDS ORDERED: MULTI PO (15:04)
[2017-03-09] MEDS ORDERED: THIA100T10 PO (15:04)
[2017-03-09] MEDS ORDERED: FOLI-49 PO (15:04)
[2017-03-09] MEDS ORDERED: ASPI-664 PO (15:04)
[2017-03-09] MEDS ORDERED: METF500T4 PO (15:06)
--- NOTE | 2017-03-09 16:30 | DS ---
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 Keaton Steen. DIAGNOSES 1. Chronic obstructive pulmonary disease exacerbation. 2. Sepsis secondary bronchitis. 3. Poly substance abuse. 4. History of alcohol abuse. 5. History of crystal meth abuse. 6. History of marijuana use. 7. ____ secondary to dehydration. 8. Noncompliant with medical management. 9. Noncompliant with BiPAP during the course of hospitalization. 10. Leukocytosis, steroid induced. 11. Diabetes mellitus with hemoglobin 6.4. 12. Nicotine dependency. MEDICATIONS: 1. Albuterol sulfate. 2. Combivent. 3. Aspirin. 4. Librium. 5. Folic acid. 6. Levaquin. 7. Metformin. 8. Multivitamin. 9. Nicotine patch. 10. Prednisone. 11. Thiamine. ALLERGIES: NO KNOWN DRUG ALLERGIES. HOSPITAL COURSE: This is a 52-year-old gentleman with past medical history of diabetes mellitus, hy pertension, COPD, nicotine dependency, alcohol abuse, marijuana and crystal meth use, who presented to [facility] Emergency Room having shortness of breath, cough and fever. The shortness of breath has been going on for 3 days prior to admission, his cough was productive, brownish sputum. Denies any fever, chills, abdominal pain and has been drinking alcohol daily and his last drink was the day before 03/06/2017, marijuana and crystal meth. In the emergency room, his WBC was 12, hemo globin 6.4, hematocrit 59.4. He was started on banana bag, Librium, IV Levaquin and IV fluid. Pul saddle stitching machine operator was consulted, Librium, IV fluids and Solu-Medrol. He was seen and evaluated by the pulm onologist. His WBC started to improve, although today he had a bump in his WBC, although he has bee n found to be afebrile. This is likely secondary to Steroid-induced leukocytosis. His breathing st atus has been improving significantly. There was no wheezing. He denies having any chest pain, cadence rtness of breath. He has been noncompliant with oxygen, BiPAP during this course of hospitalization . Today, he had his oxygen off and upon evaluation by the nurse saturation was 91% to 93% assessed during ambulation and at rest. Upon discharge and when prescribing his prescription and providing p rescription, it was found the patient had eloped from his room and has left without obtaining any of his medications. The discharge was explained to him by me and the nurse and without notifying any of the medical personnel, he has left the hospital. This will put him at risk of worsening of his m edical status secondary to not being able to obtain his medication. His breathing status may worsen without the medication which was provided. Notation, the patient eloped prior to obtaining his prescription and has been taken the risk of leav ing without medical advice. This means that he has put himself in the danger of worsening his cond ition especially with his drug habits and smoking habits, which may lead to worsening of shortness o f breath, worsening of his bronchitis and possibly . Dictated By: CARLITOS SHANNON/JASPREET Conf#: [id number] DID#: [id number]
== END 2017-03-09 16:52 | disposition left against medical advice (07) | DRG 872 ==
LOC: FTE 15:57 → PP2 19:10 → MS4 03-09 03:00
PROVIDERS: ADMIT Internal Medicine; ATTEND Internal Medicine
PROC: 4A033R1 Measurement of Arterial Saturation, Peripheral, Percutaneous Approach (ICD-10-PCS; principal; 2017-03-08)
DX: A41.9 Sepsis, unspecified organism (principal); J44.0 Chronic obstructive pulmonary disease with (acute) lower respiratory infection; D75.1 Secondary polycythemia; E11.9 Type 2 diabetes mellitus without complications; D72.829 Elevated white blood cell count, unspecified; I10 Essential (primary) hypertension; J98.11 Atelectasis; J44.1 Chronic obstructive pulmonary disease with (acute) exacerbation; J20.9 Acute bronchitis, unspecified; F19.10 Other psychoactive substance abuse, uncomplicated; F10.10 Alcohol abuse, uncomplicated; T38.0X5A Adverse effect of glucocorticoids and synthetic analogues, initial encounter; E86.0 Dehydration; F17.210 Nicotine dependence, cigarettes, uncomplicated; Z91.19 Patient's noncompliance with other medical treatment and regimen; Z91.14 Patient's other noncompliance with medication regimen
CPT/HCPCS: 36600; 71010; 80048; 80053; 82803; 82962; 83036; 83735; 84100; 85025; 87400; 94640; 94644; 94660; 94664; J1956; J2060; J2930; J3411; J7030; J7512

== ENCOUNTER 2017-07-22 20:45 | Emergency (ER) | payer OTHER ==
[~2017-07-22] VITALS: Ht 170.2 cm; Wt 95.0 kg
[~2017-07-22 20:45] MED LIST: ALBU18HF INHALATION; ASPI-664 PO; CHLO25CA9 PO; FOLI-49 PO; IPRA4AER INHALATION; LEVO500T72 PO; METF500T4 PO; MULTI PO; NICO1PAT6 TRANSDERM; PRED20TA PO; THIA100T10 PO
[2017-07-22 20:54] VITALS: Ht 170.2 cm; Wt 95.0 kg
[2017-07-22] MEDS ORDERED: ONDANSETRON 4 MG INJ IV STA (21:27)
[2017-07-22] MEDS ORDERED: morphine 4 MG/ML VIAL IV STA (21:27)
[2017-07-22] MEDS ORDERED: SOD CHLORIDE 0.9% 500 ML IV STA (21:27)
[2017-07-22 21:49] VITALS: BP 121/78; PULSE 78; RESP 18; TEMP 98.1
[2017-07-22 21:49] LABS: BASOPHIL # 0.1 10^3/ul (0.0-0.1); EOSINOPHILS # 1.2 10^3/ul (0.0-0.5); EOSINOPHILS % 12.8 % (0.0-7.0); HEMATOCRIT 54.2 % (42.0-52.0); HEMOGLOBIN 18.5 g/dl (14.0-18.0); LYMPHOCYTES # 2.3 10^3/ul (0.8-2.9); LYMPHOCYTES % 25.3 % (15.0-51.0); MEAN CORPUSCULAR HEMOGLOBIN 31.1 pg (29.0-33.0); MEAN CORPUSCULAR HGB CONC 34.1 g/dl (32.0-37.0); MEAN CORPUSCULAR VOLUME 91.1 fl (82.0-101.0); MEAN PLATELET VOLUME 8.8 fl (7.4-10.4); MONOCYTE # 0.6 10^3/ul (0.3-0.9); MONOCYTES % 6.2 % (0.0-11.0); PLATELET COUNT 221 10^3/UL (140-415); RED BLOOD COUNT 5.95 10^6/ul (4.70-6.10); RED CELL DISTRIBUTION WIDTH 12.3 % (11.5-14.5); WHITE BLOOD COUNT 9.1 10^3/ul (4.8-10.8)
[2017-07-22 21:54] LABS: ADD UMIC YES; UR ASCORBIC ACID NEGATIVE (NEGATIVE); UR BILIRUBIN (Dip) NEGATIVE (NEGATIVE); UR BLOOD (Dip) NEGATIVE (NEGATIVE); UR CLARITY CLEAR (CLEAR); UR COLOR YELLOW (YELLOW); UR GLUCOSE (Dip) 3+ mg/dL (NEGATIVE); UR KETONES (Dip) NEGATIVE (NEGATIVE); UR LEUKOCYTE ESTERASE (Dip) TRACE Leu/ul (NEGATIVE); UR MUCUS FEW /HPF (NONE SEEN); UR NITRITE (Dip) NEGATIVE (NEGATIVE); UR RBC 1 /HPF (0-5); UR TOTAL PROTEIN (Dip) NEGATIVE (NEGATIVE); UR UROBILINOGEN (Dip) 1+ mg/dL (NEGATIVE)
[2017-07-22 22:11] LABS: ALBUMIN/GLOBULIN RATIO 1.37; BILIRUBIN,INDIRECT 0.1 mg/dl (0-1.1); BILIRUBIN,TOTAL 0.1 mg/dl (0.2-1.3); CALCIUM 8.6 mg/dl (8.4-10.2); CREATININE 1.18 mg/dl (0.61-1.24); POTASSIUM 3.5 mmol/L (3.5-5.1); TOTAL PROTEIN 6.9 g/dl (6.1-8.1)
[2017-07-22] MEDS ORDERED: HYDROmorphONE 1 MG/ML SYG IV STA (22:38)
--- NOTE | 2017-07-23 00:07 | RADRPT ---
PROCEDURE: CT ABDOMEN AND PELVIS WITHOUT CONTRAST: CLINICAL INDICATION: 54 years of age, male, abdominal pain. COMPARISON: None available. TECHNIQUE: CT of the abdomen and pelvis was performed without intravenous contrast. Oral contrast wa s not administered prior to the examination. Coronal and sagittal reformatted images were obtained from the axial source images. Images were revi ewed on a high-resolution PACS workstation. Dose information: Based on a 32 cm phantom, the estimated radiation dose (CTDIvol mGy) for each seri es in this exam is 19.3. The estimated cumulative dose (DLP mGy-cm) is 1114. One or more of the following dose reduction techniques were used: - Automated exposure control. - Adjustment of the mA and/or kV according to patient size. - Use of iterative reconstruction technique. FINDINGS: In the absence of intravenous contrast, the study constitutes a limited assessment of the solid orga ns, bowel and vessels. LUNG BASES: 0.7 cm subpleural nodule right middle lobe (3/2). 0.6 cm right lower lobe pulmonary nodu le (3/13). 0.7 cm left lower lobe pulmonary nodule (3/6). ABDOMEN/PELVIS: Liver: Normal noncontrast appearance. Gallbladder: Normal noncontrast appearance. Bile ducts: No intrahepatic or extrahepatic biliary duct dilatation. Spleen: Normal noncontrast appearance. Pancreas: There are coarse calcifications in the head of the pancreas in keeping with chronic pancre atitis. There are large calcifications in the tail of the pancreas that may be situated in the duct. There is likely upstream dilatation of the main pancreatic duct in the tail of the pancreas althoug h a cystic pancreatic tail mass cannot be excluded. Adrenal glands: Normal noncontrast appearance. Kidneys and ureters: Normal noncontrast appearance. Aorta and IVC: Mild atherosclerosis aorta. No aneurysm. Lymph nodes: Mildly enlarged celiac axis lymph node measuring 1.3 cm (3/49). Gastrointestinal tract: Normal noncontrast appearance. Appendix: Normal Bladder: Normal noncontrast appearance. Pelvic Organs: Normal noncontrast appearance. Peritoneal cavity: No free fluid or free intraperitoneal air. Abdominal wall: There is a 3.2 x 7.7 x 7.2 cm ill-defined heterogeneous mass enlarging the left rect us abdominus muscle with edema in the overlying subcutaneous fat. Mass contains hyperdense areas. There is a abdominal wall hernia in the supraumbilical midline that contains a knuckle of small princess l and fat without evidence of obstruction or strangulation. Hernia sac measures 7 cm and defect in t he fascia measures 2.7 cm. Small bilateral fat containing indirect inguinal hernias. Small fat containing right lumbar hernia i nferior to the right 12th rib. BONES: Musculoskeletal: Multilevel degenerative changes in spine. No suspicious bone lesions. IMPRESSION: 7.7 cm ill-defined mass enlarging the left rectus abdominus muscle with edema in the overlying subcu taneous fat. In a patient who is anticoagulated, the appearance could be consistent with an intram uscular hematoma. In the absence of anticoagulation, the appearance is concerning for a soft tissue neoplasm. Recommend further evaluation with contrast enhanced CT or MRI. Coarse calcifications in the head of the pancreas are likely due to chronic pancreatitis. There are coarse calcifications in the tail of the pancreas that may be situated in the duct with obstruction of the main pancreatic duct and upstream dilatation. However a pancreatic tail mass with coarse calc ifications cannot be excluded. Recommend further evaluation with dedicated enhanced pancreas CT. Bilateral pulmonary nodules measuring up to 0.7 cm. Recommend further evaluation with dedicated ches t CT. Fat and bowel containing abdominal wall hernia in the supraumbilical midline without obstruction or strangulation. In addition there are bilateral fat containing inguinal hernias and a fat-containing right lumbar hernia. RPTAT: HCTS Physician Anup Date Time Electronically viewed and signed by Physician Anup on 07/23/2017 00:06 /
--- NOTE | 2017-07-23 00:57 | ERD ---
ER Documentation Chief Complaint Date/Time DATE: 07/23/17 TIME: 00:55 Chief Complaint abd pain 4 days. -n/v/d. HPI This is a 52-year-old male comes with abdomen left upper quadrant for the past 4 days on and off. He says it feels very distended. No nausea no vomiting no chills. Pain is mild to moderate intensity. No other current complaints. ROS All systems reviewed and are negative except as per history of present illness. Medications Home Meds Active Scripts Metformin* (Glucophage*) 500 Mg Tab, 500 MG PO BID, #60 TAB Prov:CARLITOS GALVIN MD 03/09/17 Levofloxacin* (Levaquin*) 500 Mg Tablet, 500 MG PO DAILY, #7 TAB Prov:CARLITOS GALVIN MD 03/09/17 Albuterol/Ipratropium* (Combivent Respimat*) 20-100 Mcg/Inh - 4 Gm Aer.w.adap, 1 PUFF INHALATION QID, #1 INHALER Prov:CARLITOS GALVIN MD 03/09/17 Multivitamins* (Theragran*) 1 Tab Tab, 1 TAB PO DAILY, #30 TAB Prov:CARLITOS GALVIN MD 03/09/17 Thiamine* (Thiamine*) 100 Mg Tablet, 100 MG PO DAILY, #30 TAB Prov:CARLITOS GALVIN MD 03/09/17 Folic Acid* (Folic Acid*) 1 Mg Tablet, 1 MG PO DAILY, #30 TAB Prov:CARLITOS GALVIN MD 03/09/17 Chlordiazepoxide* (Chlordiazepoxide*) 25 Mg Capsule, 50 MG PO TID, #15 CAP Prov:CARLITOS GALVIN MD 03/09/17 Aspirin* (Aspirin* EC) 81 Mg Tablet.dr, 81 MG PO DAILY, #30 Prov:CARLITOS GALVIN MD 03/09/17 Nicotine* (Nicotine* Patch) 21 mg/day Patch, 1 PATCH TRANSDERM DAILY, #30 Prov:CARLITOS GALVIN MD 03/09/17 Prednisone* (Prednisone*) 20 Mg Tab, 20 MG PO BID for 7 Days, #14 TAB Prov:CARLITOS GALVIN MD 03/09/17 Albuterol Sulfate* (Ventolin HFA*) 18 Gm Hfa.aer.ad, 2 PUFF INHALATION Q4H, #1 INHALER Prov:JOSE SANCHEZ MD 03/07/17 Allergies Allergies: Coded Allergies: No Known Drug Allergy (Verified Allergy, Unknown, 07/22/17) PMhx/Soc History of Surgery: No Anesthesia Reaction: No Hx Neurological Disorder: No Hx Respiratory Disorders: Yes (COPD) Hx Cardiac Disorders: No Hx Psychiatric Problems: Yes (Depression) Hx Miscellaneous Medical Probl: Yes (abdominal hernia) Hx Alcohol Use: Yes (Every day, 5 beers a day) Hx Substance Use: Yes (+ meth, cocaine "a few days ago".) Hx Tobacco Use: Yes (1 pack/day x 40 years ) Smoking Status: Current every day smoker Physical Exam Vitals Vital Signs Date Time Temp Pulse Resp B/P Pulse Ox O2 Delivery O2 Flow Rate FiO2 07/22/17 21:49 98.1 78 18 121/78 99 Room Air 07/22/17 20:54 98.1 97 18 129/87 99 Physical Exam Const: [] Head: Atraumatic Eyes: Normal Conjunctiva ENT: Normal External Ears, Nose and Mouth. Neck: Full range of motion..~ No meningismus. Resp: Clear to auscultation bilaterally Cardio: Regular rate and rhythm, no murmurs Abd: Soft, non tender, non distended. Normal bowel sounds Skin: No petechiae or rashes Back: No midline or flank tenderness Ext: No cyanosis, or edema Neur: Awake and alert Psych: Normal Mood and Affect Result Diagram: 07/22/17213407/22/172134 Results 24 hrs Laboratory Tests Test 07/22/17 21:35 White Blood Count 9.110^3/ul Red Blood Count 5.9510^6/ul Hemoglobin 18.5g/dl Hematocrit 54.2% Mean Corpuscular Volume 91.1fl Mean Corpuscular Hemoglobin 31.1pg Mean Corpuscular Hemoglobin Concent 34.1g/dl Red Cell Distribution Width 12.3% Platelet Count 38649^3/UL Mean Platelet Volume 8.8fl Neutrophils % 54.0% Lymphocytes % 25.3% Monocytes % 6.2% Eosinophils % 12.8% Basophils % 1.0% Nucleated Red Blood Cells % 0.0/100WBC Neutrophils # (Manual) 4.910^3/ul Lymphocytes # 2.310^3/ul Monocytes # 0.610^3/ul Eosinophils # 1.210^3/ul Basophils # 0.110^3/ul Nucleated Red Blood Cells # 0.010^3/ul Urine Color YELLOW Urine Clarity CLEAR Urine pH 5.0 Urine Specific [place] 1.030 Urine Ketones NEGATIVEmg/dL Urine Nitrite NEGATIVEmg/dL Urine Bilirubin NEGATIVEmg/dL Urine Urobilinogen 1+mg/dL Urine Leukocyte Esterase TRACELeu/ul Urine Microscopic RBC 1/HPF Urine Microscopic WBC 14/HPF Urine Mucus FEW/HPF Urine Hemoglobin NEGATIVEmg/dL Urine Glucose 3+mg/dL Urine Total Protein NEGATIVEmg/dl Sodium Level 136mmol/L Potassium Level 3.5mmol/L Chloride Level 102mmol/L Carbon Dioxide Level 28mmol/L Anion Gap 10 Blood Urea Nitrogen 9mg/dl Creatinine 1.18mg/dl Glucose Level 230mg/dl Calcium Level 8.6mg/dl Total Bilirubin 0.1mg/dl Direct Bilirubin 0.00mg/dl Indirect Bilirubin 0.1mg/dl Aspartate Amino Transf (AST/SGOT) 25IU/L Alanine Aminotransferase (ALT/SGPT) 40IU/L Alkaline Phosphatase 91IU/L Total Protein 6.9g/dl Albumin 4.0g/dl Globulin 2.90g/dl Albumin/Globulin Ratio 1.37 Lipase 66U/L Current Medications Medications (Trade) Dose Ordered Sig/Hector Route PRN Reason Start Time Stop Time Status Last Admin Dose Admin Sodium Chloride (NS) 500 ml @ 500 mls/hr Q1H STAT IV 07/22/17 21:27 07/22/17 22:26 DC 07/22/17 21:42 Morphine Sulfate (morphine) 4 mg ONCE STAT IV 07/22/17 21:27 07/22/17 21:28 DC 07/22/17 21:42 Ondansetron HCl (Zofran Inj) 4 mg ONCE STAT IV 07/22/17 21:27 07/22/17 21:28 DC 07/22/17 21:42 Hydromorphone HCl (Dilaudid) 1 mg ONCE STAT IV 07/22/17 22:38 07/22/17 22:39 DC 07/22/17 23:34 Procedures/MDM CT scan of abdomen and pelvis shows a possible neoplasm versus expanding hematoma. Please see radiologist dictation for report. Medical decision-m[age]-year-old male who has what looks to be soft tissue mass versus hematoma in the left upper quadrant and the rectus sheath muscle. I have advised for admission, however the patient is decided to sign out AGAINST MEDICAL ADVICE. Patient understands the risks secondary to leaving AGAINST MEDICAL ADVICE currently including possible due to current condition. He verbalizes these risks and repeat some back in his own words. Patient will follow up with primary care physician Departure Diagnosis: Primary Impression: Abdominal pain Abdominal location: unspecified location Qualified Code: R10.9 - Abdominal pain, unspecified abdominal location Condition: Stable AYDE ARECHIGA Jul 23, 2017 00:57
[2017-07-23] MEDS ORDERED: HYDR-902 PO (00:58)
== END 2017-07-23 01:30 | disposition home or self-care (01) ==
LOC: E/R 20:45
DX: R10.12 Left upper quadrant pain (principal); J44.9 Chronic obstructive pulmonary disease, unspecified; F17.210 Nicotine dependence, cigarettes, uncomplicated; Z79.82 Long term (current) use of aspirin; Z79.84 Long term (current) use of oral hypoglycemic drugs
CPT/HCPCS: 36415; 74176; 80053; 81001; 83690; 85025; 96374; 96375; J1170; J2270; J2405; J7040; Z7502

== ENCOUNTER 2017-08-31 02:22 | Inpatient (IN) | payer OTHER ==
[~2017-08-31] VITALS: Ht 170.2 cm; Wt 113.0 kg
[~2017-08-31 02:22] MED LIST changes: +HYDR-902 PO
[2017-08-31] MEDS ORDERED: IPRATROPIUM (NEB) 0.5 MG/2.5 ML AMP INH STA (02:36)
[2017-08-31] MEDS ORDERED: LEVALBUTEROL (NEB) 1.25 MG/0.5 ML AMP INH STA (02:36)
[2017-08-31 03:03] LABS: BASOPHIL # 0.1 10^3/ul (0.0-0.1); EOSINOPHILS # 1.5 10^3/ul (0.0-0.5); EOSINOPHILS % 13.7 % (0.0-7.0); HEMATOCRIT 55.6 % (42.0-52.0); HEMOGLOBIN 18.4 g/dl (14.0-18.0); LYMPHOCYTES # 2.5 10^3/ul (0.8-2.9); LYMPHOCYTES % 22.9 % (15.0-51.0); MEAN CORPUSCULAR HEMOGLOBIN 30.5 pg (29.0-33.0); MEAN CORPUSCULAR HGB CONC 33.1 g/dl (32.0-37.0); MEAN CORPUSCULAR VOLUME 92.2 fl (82.0-101.0); MEAN PLATELET VOLUME 8.5 fl (7.4-10.4); MONOCYTE # 0.7 10^3/ul (0.3-0.9); MONOCYTES % 6.4 % (0.0-11.0); NEUTROPHIL # 6.1 10^3/ul (1.6-7.5); NEUTROPHILS % 55.6 % (39.0-77.0); PLATELET COUNT 244 10^3/UL (140-415); RED BLOOD COUNT 6.03 10^6/ul (4.70-6.10); RED CELL DISTRIBUTION WIDTH 13.1 % (11.5-14.5)
[2017-08-31 03:21] LABS: INR 1.07; PARTIAL THROMBOPLASTIN TIME 28.6 Sec (25.0-35.0); PROTIME 13.9 Sec (12.2-14.2); PT RATIO 1.1
[2017-08-31 03:26] LABS: ALANINE AMINOTRANSFERASE 45 IU/L (13-69); ALBUMIN 4.2 g/dl (3.3-4.9); ALBUMIN/GLOBULIN RATIO 1.44; ALKALINE PHOSPHATASE 93 IU/L (42-121); ANION GAP 15 (8-16); ASPARTATE AMINO TRANSFERASE 35 IU/L (15-46); BILIRUBIN,INDIRECT 0.2 mg/dl (0-1.1); BILIRUBIN,TOTAL 0.2 mg/dl (0.2-1.3); BLOOD UREA NITROGEN 11 mg/dl (7-20); CALCIUM 8.8 mg/dl (8.4-10.2); CARBON DIOXIDE 25 mmol/L (21-31); CHLORIDE 104 mmol/L (97-110); CREATININE 1.17 mg/dl (0.61-1.24); GLUCOSE 131 mg/dl (70-220); POTASSIUM 3.7 mmol/L (3.5-5.1); SODIUM 140 mmol/L (135-144); TOTAL PROTEIN 7.1 g/dl (6.1-8.1)
--- NOTE | 2017-08-31 03:28 | RADRPT ---
PROCEDURE: XR Chest. CLINICAL INDICATION: Sepsis TECHNIQUE: AP Portable chest. COMPARISON: CT 07/22/2017; DR CHEST 03/07/2017 FINDINGS: Lordotic view was obtained. The cardiomediastinal silhouette is within normal limits. Prominent epicardial fat noted. The aorta is normal. No focal consolidation, pleural effusion or pneumothorax is seen. The osseous structure s are intact. IMPRESSION: No radiographic evidence of acute cardiopulmonary disease. Physician Priti Date Time Electronically viewed and signed by Physician Priti on 08/31/2017 03:27 CS/
[2017-08-31] MEDS ORDERED: METHYLPREDNISOLONE 125 MG INJ IV ONE (03:30)
[2017-08-31 03:42] LABS: URINE BLOOD (Dip) POC Negative (NEGATIVE)
[2017-08-31 03:44] LABS: TROPONIN-I < 0.012 ng/ml (0.00-0.12)
[2017-08-31] MEDS ORDERED: LEVOFLOXACIN 750MG/D5W (PMX) 150 ML IVPB ONE ×2 (04:00→08:00)
--- NOTE | 2017-08-31 04:20 | ERD ---
ER Documentation Chief Complaint Chief Complaint shortness of breath x 2 days, wheezing HPI The patient is a 52-year-old male, presenting to the ER because of acute shortness of breath for the last 2 days, worse tonight. He has been coughing for the last 2 days, denies fever, chills, neck pain, chest pain, abdominal pain , vomiting, dysuria, diarrhea. He had similar symptoms previously, he smokes 2 packs a day, drinks, does illicit drug cocaine amphetamine and marijuana. Past medical history: Hypertension, diabetes mellitus, COPD, polycythemia vera Past surgical history: None ROS All systems reviewed and are negative except as per history of present illness. Medications Home Meds Discontinued Scripts Hydrocodone/Acetaminophen ([place] 10-325 Tablet) 1 Each Tablet, 1 TAB PO Q6H Y for PAIN, #20 TAB Prov:AYDE ARECHGIA 07/23/17 Metformin* (Glucophage*) 500 Mg Tab, 500 MG PO BID, #60 TAB Prov:CARLITOS GALVIN MD 03/09/17 Levofloxacin* (Levaquin*) 500 Mg Tablet, 500 MG PO DAILY, #7 TAB Prov:CARLITOS GALVIN MD 03/09/17 Albuterol/Ipratropium* (Combivent Respimat*) 20-100 Mcg/Inh - 4 Gm Aer.w.adap, 1 PUFF INHALATION QID, #1 INHALER Prov:CARLITOS GALVIN MD 03/09/17 Multivitamins* (Theragran*) 1 Tab Tab, 1 TAB PO DAILY, #30 TAB Prov:CARLITOS GALVIN MD 03/09/17 Thiamine* (Thiamine*) 100 Mg Tablet, 100 MG PO DAILY, #30 TAB Prov:CARLITOS GALVIN MD 03/09/17 Folic Acid* (Folic Acid*) 1 Mg Tablet, 1 MG PO DAILY, #30 TAB Prov:CARLITOS GALVIN MD 03/09/17 Chlordiazepoxide* (Chlordiazepoxide*) 25 Mg Capsule, 50 MG PO TID, #15 CAP Prov:CARLITOS GALVIN MD 03/09/17 Aspirin* (Aspirin* EC) 81 Mg Tablet.dr, 81 MG PO DAILY, #30 Prov:CARLITOS GALVIN MD 03/09/17 Nicotine* (Nicotine* Patch) 21 mg/day Patch, 1 PATCH TRANSDERM DAILY, #30 Prov:CARLITOS GALVIN MD 03/09/17 Prednisone* (Prednisone*) 20 Mg Tab, 20 MG PO BID for 7 Days, #14 TAB Prov:CARLITOS GALVIN MD 03/09/17 Albuterol Sulfate* (Ventolin HFA*) 18 Gm Hfa.aer.ad, 2 PUFF INHALATION Q4H, #1 INHALER Prov:JOSE SANCHEZ MD 03/07/17 Allergies Allergies: Coded Allergies: No Known Drug Allergy (Verified Allergy, Unknown, 07/22/17) PMhx/Soc History of Surgery: No Anesthesia Reaction: No Hx Neurological Disorder: No Hx Respiratory Disorders: Yes (COPD) Hx Cardiac Disorders: No Hx Psychiatric Problems: Yes (Depression) Hx Miscellaneous Medical Probl: Yes (abdominal hernia) Hx Alcohol Use: Yes (Every day, 5 beers a day) Hx Substance Use: Yes (+ meth, cocaine ) Hx Tobacco Use: Yes (1 pack/day x 40 years ) Smoking Status: Current every day smoker Physical Exam Vitals Vital Signs Date Time Temp Pulse Resp B/P Pulse Ox O2 Delivery O2 Flow Rate FiO2 08/31/17 02:54 88 36 93 21 08/31/17 02:45 Non Rebreather 15 08/31/17 02:45 Non Rebreather 15.0 08/31/17 02:45 97.3 86 26 148/104 91 Non Rebreather 15.0 08/31/17 02:26 97.3 96 20 155/103 91 Physical Exam Const: Mild acute distress. Head: Atraumatic. Eyes: Normal Conjunctiva. ENT: Normal External Ears, Nose and Mouth. Neck: Full range of motion. No meningismus. Resp: Bilateral expiratory wheezes, tachypneic Cardio: Regular rate and rhythm. Abd: Soft, non distended, normal bowel sounds, non tender. Skin: No petechiae or rashes. Back: No midline or flank tenderness. Ext: No cyanosis, or edema. Neur: Awake and alert. No focal deficit Psych: Normal Mood and Affect. Result Diagram: 08/31/17 0245 08/31/17 0245 Results 24 hrs Laboratory Tests Test 08/31/17 02:45 08/31/17 03:42 White Blood Count 11.010^3/ul Red Blood Count 6.0310^6/ul Hemoglobin 18.4g/dl Hematocrit 55.6% Mean Corpuscular Volume 92.2fl Mean Corpuscular Hemoglobin 30.5pg Mean Corpuscular Hemoglobin Concent 33.1g/dl Red Cell Distribution Width 13.1% Platelet Count 74590^3/UL Mean Platelet Volume 8.5fl Neutrophils % 55.6% Lymphocytes % 22.9% Monocytes % 6.4% Eosinophils % 13.7% Basophils % 1.0% Nucleated Red Blood Cells % 0.0/100WBC Neutrophils # 6.110^3/ul Lymphocytes # 2.510^3/ul Monocytes # 0.710^3/ul Eosinophils # 1.510^3/ul Basophils # 0.110^3/ul Nucleated Red Blood Cells # 0.010^3/ul Prothrombin Time 13.9Sec Prothrombin Time Ratio 1.1 INR International Normalized Ratio 1.07 Activated Partial Thromboplast Time 28.6Sec Sodium Level 140mmol/L Potassium Level 3.7mmol/L Chloride Level 104mmol/L Carbon Dioxide Level 25mmol/L Anion Gap 15 Blood Urea Nitrogen 11mg/dl Creatinine 1.17mg/dl Glucose Level 131mg/dl Lactic Acid Level 1.4mmol/L Calcium Level 8.8mg/dl Total Bilirubin 0.2mg/dl Direct Bilirubin 0.00mg/dl Indirect Bilirubin 0.2mg/dl Aspartate Amino Transf (AST/SGOT) 35IU/L Alanine Aminotransferase (ALT/SGPT) 45IU/L Alkaline Phosphatase 93IU/L Troponin I < 0.012ng/ml Total Protein 7.1g/dl Albumin 4.2g/dl Globulin 2.90g/dl Albumin/Globulin Ratio 1.44 Ethyl Alcohol Level < 10.0mg/dl Bedside Urine pH (LAB) 5.5 Bedside Urine Protein (LAB) 1+ Bedside Urine Glucose (UA) 0.1% Bedside Urine Ketones (LAB) Negative Bedside Urine Blood Negative Bedside Urine Nitrite (LAB) Negative Bedside Urine Leukocyte Esterase (L Negative Current Medications Medications (Trade) Dose Ordered Sig/Hector Route PRN Reason Start Time Stop Time Status Last Admin Dose Admin Levalbuterol (Xopenex Neb) 3.75 mg ONCE STAT INH 08/31/17 02:36 08/31/17 02:38 DC Ipratropium [place] (Atrovent 0.02% (Neb)) 1.5 mg ONCE STAT INH 08/31/17 02:36 08/31/17 02:38 DC Methylprednisolone Sodium Succinate 125 mg 125 mg ONCE ONCE IV 08/31/17 03:30 08/31/17 03:32 DC Levofloxacin/ Dextrose (Levaquin 750 Mg/ D5W 150 ml (Pmx)) 150 ml @ 100 mls/hr ONCE ONCE IVPB 08/31/17 04:00 08/31/17 05:29 Procedures/MDM [place] [id number] Radiology Main Line: [phone] DIAGNOSTIC IMAGING REPORT Patient: DAMIEN FINLEY : 1965 Age: 52 Sex: M MR #: [id number] DOS: 08/31/17 0236 Ordering MD: SUMI SANDOVAL MD Location: E/R Room/Bed: PROCEDURE: XR Chest. CLINICAL INDICATION: Sepsis TECHNIQUE: AP Portable chest. COMPARISON: CT 07/22/2017; DR CHEST 03/07/2017 FINDINGS: Lordotic view was obtained. The cardiomediastinal silhouette is within normal limits. Prominent epicardial fat noted. The aorta is normal. No focal consolidation, pleural effusion or pneumothorax is seen. The osseous structures are intact. IMPRESSION: No radiographic evidence of acute cardiopulmonary disease. Physician Priti Date Time Electronically viewed and signed by Physician Priti on 08/31/2017 03: 27 CS/ CC: SUMI SANDOVAL MD EKG: Read by emergency physician Rate/Rhythm: Normal Sinus Rhythm 88 beats/min QRS, ST, T-waves: No ST elevation, no T inversion Impression: Normal EKG MEDICAL MAKING DECISION: The patient is a 52-year-old male, presenting with acute COPD exacerbation. He was treated with Ativan 1.5 mg and Xopenex 3.75 mg continuous nebulizer over one hour, Solu-Medrol 125 mg IV, Levaquin 750 mg IV for acute severe exacerbation with good response. The differential diagnoses considered include but are not limited to asthma, COPD, pneumonia, pulmonary embolus, pleural effusion, congestive heart failure. Critical Care: Time: 35 minutes excluding all billable procedures. Treatments/Evaluations: Close monitoring and treatment of unstable vital signs, cardiorespiratory, and neurologic status, while maintaining tight balance of fluid, respiratory, and cardiac interventions. Departure Diagnosis: Primary Impression: COPD exacerbation Condition: Stable Comments I discussed the findings with the patient. I discussed the patient with the on- call hospitalist Dr. Dotson at 4 AM. who was made aware of the lab, the treatment, the patient condition. The patient is admitted to telemetry SUMI SANDOVAL MD Aug 31, 2017 04:20
[2017-08-31 04:36] LABS: ADD UMIC YES; UR ASCORBIC ACID NEGATIVE (NEGATIVE); UR BILIRUBIN (Dip) NEGATIVE (NEGATIVE); UR BLOOD (Dip) NEGATIVE (NEGATIVE); UR CLARITY CLEAR (CLEAR); UR COLOR YELLOW (YELLOW); UR GLUCOSE (Dip) 2+ mg/dL (NEGATIVE); UR KETONES (Dip) NEGATIVE (NEGATIVE); UR LEUKOCYTE ESTERASE (Dip) TRACE Leu/ul (NEGATIVE); UR MUCUS FEW /HPF (NONE SEEN); UR NITRITE (Dip) NEGATIVE (NEGATIVE); UR RBC 1 /HPF (0-5); UR SPECIFIC GRAVITY (Dip) 1.025 (1.003-1.030); UR TOTAL PROTEIN (Dip) NEGATIVE (NEGATIVE); UR UROBILINOGEN (Dip) 2+ mg/dL (NEGATIVE)
[2017-08-31 04:43] VITALS: TEMP 98.3
[2017-08-31] MEDS ORDERED: OLAN300V IM (04:45)
[2017-08-31 05:07] LABS: BARBITURATES NEGATIVE (NEGATIVE); BENZODIAZEPINES NEGATIVE (NEGATIVE); CANNABINOIDS POSITIVE (NEGATIVE); COCAINE POSITIVE (NEGATIVE); OPIATES NEGATIVE (NEGATIVE)
[2017-08-31 05:25] VITALS: PULSE 98
[2017-08-31 05:29] VITALS: BP 138/93; PULSE 98; RESP 18
[2017-08-31 05:30] VITALS: Ht 170.2 cm; Wt 113.0 kg
[2017-08-31] MEDS ORDERED: ACETAMINOPHEN 325 MG TAB PO PRN (06:00)
[2017-08-31] MEDS ORDERED: PANTOPRAZOLE 40 MG INJ IV SCH (06:00)
[2017-08-31] MEDS ORDERED: ONDANSETRON 4 MG INJ IV PRN (06:00)
[2017-08-31] MEDS ORDERED: LORAZEPAM 2 MG INJ IV PRN (06:00)
[2017-08-31] MEDS ORDERED: NACL 0.9% 3 ML SYG IV SCH (06:00)
--- NOTE | 2017-08-31 07:21 | HP ---
Date/Time of Note Date/Time of Note DATE: 08/31/17 TIME: 06:57 Assessment/Plan VTE Prophylaxis VTE Prophylaxis Intervention: SCD's Assessment/Plan Chief Complaint/Hosp Course This is a 52-year-old male being admitted to the telemetry floor for: #1 Chronic obstructive pulmonary disease exacerbation: At the current time will provide patient with duo nebs every 4 hours, patient received a loading dose of Solu-Medrol 125 in the ED. Will continue patient on Solu-Medrol 30 mg IV every 8 hours. As he does have dyspnea and increased sputum production will also treat patient with Levaquin daily. Patient does not appear to have any home bronchodilators. Will need to likely send him home on bronchodilators and schedule for outpatient PFT. #2 Leukocytosis: Likely stress related, patient is afebrile at this time. Will continue to monitor for any signs of infection or early sepsis. #3 history of diabetes: Patient's last A1c in February was 6.4. Will repeat an A1c. Patient does not have any home medications patient is very noncompliant it appears. #4 hypertension: Again patient does not have any home medications it appears to be very noncompliant. Will continue monitor blood pressure and start on medications as indicated. #5 Polysubstance abuse: Patient urine drug screen was positive for cocaine methamphetamines and marijuana. Right now put him on Ativan as needed for withdrawal. Will need a social work consult for drug cessation. #6 erythrocytosis: This may be secondary to patient's underlying COPD. Will continue to monitor as this patient may need hematology consult to evaluate for possible polycythemia vera. #7 mental health disorder: Unknown disorder, patient is on Zyprexa it appears on his medical reconciliation. Will need to clarify with the patient. #7 DVT GI prolapses: SCDs, Protonix Further treatment strategy will be implemented as per the clinical course Problems: HPI/ROS Admit Date/Time Admit Date/Time Aug 31, 2017 at 04:02 Hx of Present Illness Chief complaint: Shortness of breath This is a 52-year-old male, presenting to the ER because of acute shortness of breath for the last 2 days, which got significantly worse tonight. he has been coughing for the last 2 days. His cough is productive of clear phlegm. He states that he used meth and cocaine last night he . denies fever, chills, neck pain, chest pain, abdominal pain, vomiting, dysuria, diarrhea. He had similar symptoms previously. Allergies: NKDA Medications: See JAN ROS Const: As per HPI Eyes : No pain discharge or redness or change in visual acuity ENT: No pain, sore throat, congestion, congestion, dysphagia or discharge Respiratory: As per HPI wheezing, or pleuritic pain Cardiovascular: No chest pain, palpitation, PND, or edema GI : no change in appetite, abdominal pain, nausea, vomiting, diarrhea, constipation, or change in the color his stool Genitourinary: No dysuria, hematuria, flank pain , discharge or CVA tenderness Musculoskeletal: No joint pain, back pain, neck pain, restricted range of motion in neck or joints Skin: No rash, bruising or hives Neuro: No headache, dizziness, syncope, seizure, focal weakness Endocrine: No polyuria, polydipsia, temperature intolerance Psych: No hallucination, depression, anxiety or suicidal ideation PMH/Family/Social Past Medical History diabetes, hypertension, COPD, depression, alcohol abuse, marijuana and crystal meth use, Past Surgical History Past Surgical Hx: no surgical history Family History Significant Family History: no pertinent family hx Social History He is a daily beer drinker Smoking Status: Current every day smoker Drug Use: cocaine, marijuana, other (Methamphetamine) Exam/Review of Systems Vital Signs Vitals Vital Signs Date Time Temp Pulse Resp B/P Pulse Ox O2 Delivery O2 Flow Rate FiO2 08/31/17 05:29 98.1 98 18 138/93 94 Nasal Cannula 08/31/17 04:43 4.0 08/31/17 02:54 21 Exam Exam General: Patient is sitting in bed in mild respiratory distress, coughing HEENT: Atraumatic, normocephalic. The pupils are equal, round and reactive. Extraocular motor are intact Neck: Supple with full range of motion. No rigidity or meningismus Chest: Nontender Lungs: Persistent cough, poor air movement bilaterally, mild expiratory wheezes Heart: Normal S1-S2, Regular rhythm and rate. Abdomen: Soft , nontender, nondistended , bowel sounds are present. No guarding no rebound tenderness , No masses or organomegaly. No costovertebral temporal angle mass Extremities: Normal to inspection, no edema no cyanosis Neurologic: Normal mental status, speech normal, cranial nerves II through XII are intact, motor and sensory are intact, no focal weakness Additional Comments PROCEDURE: XR Chest. CLINICAL INDICATION: Sepsis TECHNIQUE: AP Portable chest. COMPARISON: CT 07/22/2017; DR CHEST 03/07/2017 FINDINGS: Lordotic view was obtained. The cardiomediastinal silhouette is within normal limits. Prominent epicardial fat noted. The aorta is normal. No focal consolidation, pleural effusion or pneumothorax is seen. The osseous structures are intact. IMPRESSION: No radiographic evidence of acute cardiopulmonary disease. Shane Kingsley Physician Date Time Electronically viewed and signed by Shane Kingsley Physician on 08/31/2017 03: 27 CS/ CC: SUMI SANDOVAL MD Labs Result Diagram: 08/31/175 08/31/17 024 Medications Medications Current Medications Ondansetron HCl (Zofran Inj) 4 mg Q6H PRN IV NAUSEA AND/OR VOMITING; Start at 06:00 Acetaminophen (Tylenol Tab) 650 mg Q6H PRN PO PAIN LEVEL 1-3 OR FEVER; Start 08/31/17 at 06:00 Pantoprazole (Protonix Iv) 40 mg DAILY@06 IV Last administered on 08/31/17t 06 :41; Admin Dose 40 MG; Start 08/31/17 at 06:00 Prednisone (Prednisone) 60 mg DAILY PO ; Start 08/31/17 at 09:00 Lorazepam (Ativan) 1 mg Q2H PRN IV AGITATION/ANXIETY; Start 08/31/17 at 06:00 RAFFY MARSHALL Aug 31, 2017 07:08
[2017-08-31 08:12] LABS: CHOL/HDL RATIO 4.5 RATIO
[2017-08-31 08:36] LABS: THYROID STIMULATING HORMONE 0.781 MIU/L (0.465-4.680)
[2017-08-31] MEDS ORDERED: predniSONE 20 MG TAB PO SCH (09:00)
[2017-08-31] MEDS ORDERED: ALBUTEROL/IPRATROPIUM (NEB) 3 ML AMP HHN SCH (09:00)
[2017-08-31] MEDS ORDERED: METHYLPREDNISOLONE 40 MG INJ IV SCH (14:00)
[2017-09-01] MEDS ORDERED: INFLUENZA VIRUS VACCINE 0.5 ML SYG IM* ONE (09:00)
--- NOTE | 2017-09-01 21:26 | DS ---
Date/Time of Note Date/Time of Note DATE: 09/01/17 TIME: 21:23 Discharge Summary Admission/Discharge Info Admit Date/Time Aug 31, 2017 at 04:02 Discharge Date/Time Aug 31, 2017 at 07:10 Discharge Diagnosis COPD exacerbation Patient left AMA, AGAINST MEDICAL ADVICE Patient Condition: Serious Hx of Present Illness Chief complaint: Shortness of breath This is a 52-year-old male, presenting to the ER because of acute shortness of breath for the last 2 days, which got significantly worse tonight. he has been coughing for the last 2 days. His cough is productive of clear phlegm. He states that he used meth and cocaine last night he . denies fever, chills, neck pain, chest pain, abdominal pain, vomiting, dysuria, diarrhea. He had similar symptoms previously. Allergies: NKDA Medications: See [facility] Hospital Course This is a 52-year-old male being admitted to the telemetry floor for: #1 Chronic obstructive pulmonary disease exacerbation: At the current time will provide patient with duo nebs every 4 hours, patient received a loading dose of Solu-Medrol 125 in the ED. Will continue patient on Solu-Medrol 30 mg IV every 8 hours. As he does have dyspnea and increased sputum production will also treat patient with Levaquin daily. Patient does not appear to have any home bronchodilators. Will need to likely send him home on bronchodilators and schedule for outpatient PFT. #2 Leukocytosis: Likely stress related, patient is afebrile at this time. Will continue to monitor for any signs of infection or early sepsis. #3 history of diabetes: Patient's last A1c in February was 6.4. Will repeat an A1c. Patient does not have any home medications patient is very noncompliant it appears. #4 hypertension: Again patient does not have any home medications it appears to be very noncompliant. Will continue monitor blood pressure and start on medications as indicated. #5 Polysubstance abuse: Patient urine drug screen was positive for cocaine methamphetamines and marijuana. Right now put him on Ativan as needed for withdrawal. Will need a social work consult for drug cessation. #6 erythrocytosis: This may be secondary to patient's underlying COPD. Will continue to monitor as this patient may need hematology consult to evaluate for possible polycythemia vera. #7 mental health disorder: Unknown disorder, patient is on Zyprexa it appears on his medical reconciliation. Will need to clarify with the patient. #7 DVT GI prolapses: SCDs, Protonix Further treatment strategy will be implemented as per the clinical course. Shortly after interviewing and admitting the patient, I was notified by the RN that the patient left Against Medical Advice. I was not able to see the patient again to discuss why he wanted to leave as he left AMA. Home Meds Reported Medications Olanzapine Pamoate (Zyprexa Relprevv) 300 Mg Vial, 300 MG IM Q28D, #1 VIAL 08/31/17 Discontinued Scripts Hydrocodone/Acetaminophen (Hico 10-325 Tablet) 1 Each Tablet, 1 TAB PO Q6H Y for PAIN, #20 TAB Prov:AYDE ARECHIGA 07/23/17 Metformin* (Glucophage*) 500 Mg Tab, 500 MG PO BID, #60 TAB Prov:CARLITOS GALVIN MD 03/09/17 Levofloxacin* (Levaquin*) 500 Mg Tablet, 500 MG PO DAILY, #7 TAB Prov:CARLITOS GALVIN MD 03/09/17 Albuterol/Ipratropium* (Combivent Respimat*) 20-100 Mcg/Inh - 4 Gm Aer.w.adap, 1 PUFF INHALATION QID, #1 INHALER Prov:CARLITOS GALVIN MD 03/09/17 Multivitamins* (Theragran*) 1 Tab Tab, 1 TAB PO DAILY, #30 TAB Prov:CARLITOS GALVIN MD 03/09/17 Thiamine* (Thiamine*) 100 Mg Tablet, 100 MG PO DAILY, #30 TAB Prov:CARLITOS GALVIN MD 03/09/17 Folic Acid* (Folic Acid*) 1 Mg Tablet, 1 MG PO DAILY, #30 TAB Prov:CARLITOS GALVIN MD 03/09/17 Chlordiazepoxide* (Chlordiazepoxide*) 25 Mg Capsule, 50 MG PO TID, #15 CAP Prov:CARLITOS GALVIN MD 03/09/17 Aspirin* (Aspirin* EC) 81 Mg Tablet.dr, 81 MG PO DAILY, #30 Prov:CARLITOS GALVIN MD 03/09/17 Nicotine* (Nicotine* Patch) 21 mg/day Patch, 1 PATCH TRANSDERM DAILY, #30 Prov:CARLITOS GALVIN MD 03/09/17 Prednisone* (Prednisone*) 20 Mg Tab, 20 MG PO BID for 7 Days, #14 TAB Prov:CARLITOS GALVIN MD 03/09/17 Albuterol Sulfate* (Ventolin HFA*) 18 Gm Hfa.aer.ad, 2 PUFF INHALATION Q4H, #1 INHALER Prov:JOSE SANCHEZ MD 03/07/17 Follow-up Plan Patient left AGAINST MEDICAL ADVICE. He left AMA Primary Care Provider Not On Staff Doctor Time spent on discharge: Patient left AMA RAFFY MARSHALL Sep 01, 2017 21:26
== END 2017-08-31 07:10 | disposition left against medical advice (07) | DRG 192 ==
LOC: E/R 02:22 → MS4 04:02
PROVIDERS: ADMIT Family Medicine; ATTEND Family Medicine
DX: J44.1 Chronic obstructive pulmonary disease with (acute) exacerbation (principal); D75.1 Secondary polycythemia; I10 Essential (primary) hypertension; F32.9 Major depressive disorder, single episode, unspecified; F17.201 Nicotine dependence, unspecified, in remission; F14.10 Cocaine abuse, uncomplicated; F12.10 Cannabis abuse, uncomplicated; F99 Mental disorder, not otherwise specified; Z53.21 Procedure and treatment not carried out due to patient leaving prior to being seen by health care provider; Z86.39 Personal history of other endocrine, nutritional and metabolic disease
CPT/HCPCS: 36415; 71010; 80053; 80061; 80306; 80307; 81001; 81003; 83036; 83605; 84443; 84484; 85025; 85610; 85730; 87040; 87086; 93005; 94644; 94664; C9113; J1956; J2930

== ENCOUNTER 2018-03-13 14:04 | Inpatient (IN) | END 2018-03-14 13:10 | disposition home or self-care (01) | DRG 190 ==

== ENCOUNTER 2018-06-23 16:01 | Inpatient (IN) | END 2018-06-25 13:00 | disposition left against medical advice (07) | DRG 354 ==

== ENCOUNTER 2018-07-07 17:06 | Emergency (ER) | END 2018-07-07 19:13 | disposition home or self-care (01) ==